=== PATIENT | female | born 1935 | race Two or more races ===

== ENCOUNTER 2023-09-22 16:26 | Emergency (ER) | payer OTHER ==
[~2023-09-22] VITALS: Ht 154.9 cm; Wt 59.0 kg
[2023-09-22] MEDS ORDERED: VASOTEC20 M1 PO (17:44)
[2023-09-22] MEDS ORDERED: MYRBETRIQ50 MG PO (17:45)
[2023-09-22 18:21] LABS: HEMATOCRIT 40.1 % (36.0-45.00); HEMOGLOBIN 13.4 g/dL (12.0-15.00); MEAN CELL VOLUME 84.9 fL (80.00-100.00); MEAN CORPUSCULAR HEMOGLOBIN 28.4 pg (27.00-32.0); MEAN CORPUSCULAR HGB CONC 33.5 g/dl (32.0-36.0); PLATELET COUNT 221 K/uL (150-450); RED BLOOD COUNT 4.73 M/uL (4.00-6.00); RED CELL DISTRIBUTION WIDTH 13.6 % (11.5-14.5)
[2023-09-22 18:39] LABS: INR 1.1; PARTIAL THROMBOPLASTIN TIME 32.8 SECONDS (22.0-34.0); PROTHROMBIN TIME 11.5 SECONDS (9.0-11.5)
[2023-09-22 18:42] LABS: ALBUMIN 3.5 gm/dL (3.4-5.0); BILIRUBIN TOTAL 0.46 mg/dL (0.3-1.2); CALCIUM 8.8 mg/dL (8.5-10.1); CREATININE SERUM 0.71 mg/dL (0.55-1.02); GFR 78.24; GLOBULINA 3.1 G/DL (2.4-3.5); POTASSIUM 3.92 mEq/L (3.5-5.1); TOTAL PROTEIN 6.6 gm/dL (6.4-8.2)
[2023-09-22] MEDS ORDERED: MEDROLPACK PO (19:08)
[2023-09-22] MEDS ORDERED: ALLEGRA ALLERG180 MG PO (19:08)
== END 2023-09-22 19:33 | disposition home or self-care (01) ==
LOC: ER 16:27
PROVIDERS: General Practice
DX: R21 Rash and other nonspecific skin eruption (principal); I10 Essential (primary) hypertension; Z88.0 Allergy status to penicillin; Z88.1 Allergy status to other antibiotic agents